=== PATIENT | female | born 1985 | race African-American/Black ===

== ENCOUNTER 2022-10-19 03:03 | Emergency (ER) | payer SELFPAY ==
[~2022-10-19] VITALS: Ht 157.4 cm; Wt 49.6 kg
[2022-10-19 03:10] VITALS: BP 111/66
--- NOTE | 2022-10-19 03:23 | ED Chest Pain ---
General Chief Complaint: Chest Wall Stated Complaint: CHEST PAIN Source: patient Exam Limitations: no limitations History of Present Illness Date Seen by Provider: Oct 19, 2022 Time Seen by Provider: 03:12 Initial Comments 37-year-old female presents to the emergency department today for chest pain. She states that sharp pain mid central chest, xiphoid region that is worse with inspiration and palpation. No radiation. No alleviating factors. She has never had similar pains in the past. This started around 9 PM last night and has been persistent. She denies any recent fevers chills cough. She has had no abdominal pain, changes in bowel or bladder habits. She does not have menstrual cycles as she is on continuous control. Allergies and Home Medications Allergies Coded Allergies: No Known Drug Allergies (Unverified , 10/19/22) Patient Home Medication List Home Medication List Reviewed: Yes Review of Systems Review of Systems Constitutional: no symptoms reported EENTM: No Symptoms Reported Respiratory: No Symptoms Reported Cardiovascular: Chest Pain Gastrointestinal: No Symptoms Reported Genitourinary: No Symptoms Reported Musculoskeletal: no symptoms reported Skin: no symptoms reported Psychiatric/Neurological: No Symptoms Reported Endocrine: No Symptoms Reported Hematologic/Lymphatic: No Symptoms Reported Past Itcnoky-Zizfip-Ulstls Hx Patient Social History Tobacco Use?: Yes Smoking Status: Current Someday Smoker Substance use?: Yes Substance type: Marijuana Alcohol Use?: No Pt feels they are or have been: No Family Medical History Reviewed Nursing Family Hx No Pertinent Family Hx Physical Exam Vital Signs Capillary Refill : Height, Weight, BMI Height: '" Weight: lbs. oz. kg; BMI Method: General Appearance: No Apparent Distress, WD/WN HEENT: Normal ENT Inspection, Pharynx Normal Neck: Normal Inspection, Non Tender, Supple Respiratory: Lungs Clear, Normal Breath Sounds, No Accessory Muscle Use, No Respiratory Distress, Other (Tenderness palpation of the presternal region. No crepitus or deformity.) Cardiovascular: Regular Rate, Rhythm, No Edema, No Gallop, No JVD, No Murmur, Normal Peripheral Pulses Gastrointestinal: Normal Bowel Sounds, No Organomegaly, No Pulsatile Mass, Non Tender, Soft Extremity: Normal Capillary Refill, Normal Inspection, Non Tender, No Calf Tenderness Neurologic/Psychiatric: Alert, Oriented x3, No Motor/Sensory Deficits Skin: Normal Color, Warm/Dry Lymphatic: No Adenopathy Progress/Results/Core Measures Comment Sinus rhythm with a rate of 50 bpm. Possible intervals. Normal axis. There is early repolarization without any ST or T wave abnormalities. No ectopy. Departure Communication (Admissions) Patient is hemodynamically stable. Heart score is 0. Low overall risk for major adverse cardiac events in the next 30 days. Chest x-ray is negative for any pneumothorax, pneumonia or evidence for aortic dissection. She has clear palpable chest wall pain reproducible on exam. EKG is nonischemic. No indication for further emergent testing at this time. We did give her Toradol IM which has helped some with her pain. she is discharged in stable condition. Impression Primary Impression: Chest wall pain Disposition: HOME, SELF-CARE Condition: Stable Departure-Patient Inst. Referrals: NO,LOCAL PHYSICIAN (PCP/Family) Primary Care Physician Patient Instructions: Pleuritic Chest Pain (DC) Add. Discharge Instructions: Use anti-inflammatory medicine such as Motrin or Aleve alternating with Tylenol. There is no indication that this is coming from your lungs or your heart at this time. If your symptoms persist please follow-up with your primary doctor. Your symptoms change in any way concerning to return to the emergency department immediately. All discharge instructions reviewed with patient and/or family. Voiced understanding. DARLENE AQUINO DO Oct 19, 2022 03:23
[2022-10-19] MEDS ORDERED: KETOROLAC 15 MG/ML VIAL IM ONE (03:30)
--- NOTE | 2022-10-19 07:05 | Diagnostic Imaging Report ---
HISTORY: Chest pain COMPARISON: None TECHNIQUE: Frontal view the chest FINDINGS: Lung volumes are mildly large. No consolidation is seen. There is no pleural effusion or pneumothorax. The cardiac silhouette is normal in size. There is mild left convex curvature of the lumbar spine. IMPRESSION: 1. No acute pulmonary abnormality. Dictated by: Dictated on workstation # [id number]
== END 2022-10-19 03:30 | disposition home or self-care (01) ==
LOC: ER FS 03:10
DX: R07.89 Other chest pain (principal); F17.200 Nicotine dependence, unspecified, uncomplicated; Z28.310 Unvaccinated for COVID-19
CPT/HCPCS: 71045; 93005